=== PATIENT | female | born 1995 | race African-American/Black ===

== ENCOUNTER 2021-04-19 17:51 | Observation (INO) | payer BC, SELFPAY ==
--- NOTE | ~2021-04-19 | US_ITS ---
EXAMINATION: 1. US OB limited 2. US OB transvaginal DATE: 04/19/2021 19:36 INDICATION: Vaginal bleeding . Second trimester. TECHNIQUE: Real-time ultrasound of the pelvis was performed. COMPARISON: None. FINDINGS: There is a single fetus in vertex presentation. The placenta is on the mother's right, 1.0 cm from t he cervix. heart rate is 157 beats per minute (bpm). The amniotic fluid index is 14.0 cm, which is normal. Transvaginal images demonstrate a cervical length of 3.8 cm, which is normal. IMPRESSION: 1. Single living fetus in vertex presentation. 2. Low lying placenta. 3. Normal cervical length. Reviewed, dictated and finalized at location A. OARD MOTORBOAT RIGGER IMPRESSION: 1. Single living fetus in vertex presentation. 2. Low lying placenta. 3. Normal cervical length.
--- NOTE | 2021-04-19 18:51 | PM.IMHP ---
H&P: HPI History of Present Illness Date/Time: 04/19/21 18:51 Pt is at 21 weeks gestation, who presents to LD after having some bleeding on her pad and a small clot at home, when presents small amount of light streaking on pad, pt denies any pain, recent intercourse or injury. hx HSV no current complaints of outbreak. Records reviewed and blood type B+ Chief Complaint: bleeding Review of Systems Review of Systems: All systems reviewed & are unremarkable except as noted in HPI and below Constitutional: Constitutional: Reports as per HPI Exam Narrative: bedside us shows posterior placenta vertex presentation, +FM, +FHR Speculum exam by CNM small blood in cul de sac, pink, gentle digital examine revealed closed cervix when removed bright red blood Const: General: cooperative, healthy appearing and comfortable Assessment and Plan Additional Plan 25 year old, at 21 weeks gestation 1. vaginal bleeding blood type B+ urinalysis ultrasound with cervical length ROLAN Await results and continue to monitor
[2021-04-19 20:23] LABS: Add Urine Microscopic? YES; Appearance Urine Clear (Clear); Bilirubin Urine Negative (Negative); Blood Urine 2+ (Negative); Color Urine Colorless (Yellow); Glucose Urine UA Negative (Negative); Ketones Urine Negative (Negative); Leukocyte Esterase Ur Negative LEU/UL (Negative); Mucus Urine Rare /lpf; Nitrate Urine Negative (Negative); Protein Urine Negative (Negative); RBC Urine 0-2 /hpf (0-2); Specific Grav Ur 1.006 (1.001-1.035); Squamous Epithelial Cell Urine Rare /hpf (Few); Urobilinogen Urine Negative mg/dL (<2.0); WBC Urine 0-3 /hpf
--- NOTE | 2021-04-19 20:38 | PC.NURSE ---
1750- PT CAME IN C/O VAGINAL BLEEDING THAT STARTED AROUND 1700 TONIGHT. SHE HAD BRIGHT RED BLEEDING WITH A SMALL CLOT INITIALLY. HER PAD UPON ARRIVAL HAD SMALL STREAKS OF BROWN BLOOD AND UPON WIPING THE TISSUE WAS LIGHT PINK. NO ABD CRAMPING/CONTRACTIONS. 1829- JULY ACUÑA IN DEPARTMENT- INFORMED OF PT ADMISSION. ORDERS RECEIVED. 1835- JULY ACUÑA AT BEDSIDE- US PERFORMED-STERILE SPECULUM EXAM PERFORMED-STERILE VAG EXAM PERFORMED. ORDERS RECEIVED.
--- NOTE | 2021-04-19 20:46 | PC.NURSE ---
1912- PT TO U/S VIA WHEELCHAIR
--- NOTE | 2021-04-19 20:48 | PC.NURSE ---
2000- JULY ACUÑA INFORMED OF US RESULTS- WILL CONSULT WITH DR. BASSETT AND CALL BACK 2007- JULY ACUÑA CALLED BACK- ORDER TO D/C PT HOME WITH INSTRUCTIONS OF NO HEAVY LIFTING, PELVIC REST, AND TO CALL OFFICE IN MORNING TO MAKE F/U APPT.
--- NOTE | 2021-04-21 07:06 | PM.OBTRLD ---
OB - Triage/Final Diagnosis Visit Information Date of evaluation: 04/19/21 Reason for evaluation: other (bleeding) Comments/Additional reasons for admission: I have assessed the risk for this patient, Maria Eugenia Neal, and determined that she would benefit from observation care. Evaluation Laboratory results: Laboratory Tests 04/19/21 20:06 Urine Color Colorless Urine Appearance Clear Urine pH 7.0 Ur Specific [place] 1.006 Urine Protein Negative Urine Glucose (UA) Negative Urine Ketones Negative Ur Blood (Man) 2+ H Urine Nitrate Negative Urine Bilirubin Negative Urine Urobilinogen Negative Leukocyte Esterase Rfl Negative Urine RBC 0-2 Urine WBC 0-3 Ur Squamous Epith Cells Rare Urine Mucus Rare
== END 2021-04-19 20:34 | disposition home or self-care (01) ==
PROVIDERS: Advanced Practice Midwife; Admitting Provider Obstetrics & Gynecology; Visit Provider Obstetrics & Gynecology
DX: O46.92 Antepartum hemorrhage, unspecified, second trimester (principal); Z3A.21 21 weeks gestation of pregnancy
CPT/HCPCS: 76815; 76817; 81001; G0378; G0379

== ENCOUNTER 2021-08-23 06:02 | Inpatient (IN) | payer BC, SELFPAY ==
[2021-08-23] VITALS (283 sets, daily range): BP systolic 66–154; BP diastolic 36–138; PULSE 25–183; TEMP 36.5–38.1; O2SAT 57–100; BMI 29.2
[2021-08-23 07:18] LABS: Basophils Absolute Auto 0.1 K/mm3 (0.0-0.1); Basophils Percent Auto 0.4 % (0.2-1.2); Eosinophils Percent Auto 0.2 % (0-4.4); Hematocrit 36.7 % (37.0-47.0); Hemoglobin 12.2 g/dL (12.0-15.0); Immature Granulocyte Absolute 0.84 K/mm3 (0.00-0.031); Immature Granulocyte Percent A 4.2 % (0-0.5); Lymphocytes Absolute Auto 1.78 K/mm3 (0.9-3.2); Lymphocytes Percent Auto 8.9 % (18.3-44.2); Mean Corpuscular HGB Conc 33.2 g/dl (32-36); Mean Corpuscular Hemoglobin 28.6 pg (26-34); Mean Corpuscular Volume 85.9 fl (80-100); Mean Platelet Volume 10.3 fl (7.4-10.4); Monocytes Absolute Auto 2.1 K/mm3 (0.1-0.6); Monocytes Percent Auto 10.3 % (2.6-8.5); Neutrophils Absolute Auto 15.2 K/mm3 (1.3-6.7); Platelet Count Result 220 k/mm3 (150-375); Red Blood Count 4.27 M/mm3 (4.2-5.4); Red Cell Distribution Width 16.6 % (11.5-14.5)
[2021-08-23] MEDS: LACTATED RINGERS 1,000 ML 125 ML IV CONT ×3 (07:25→15:30)
[2021-08-23] MEDS: AMPICILLIN 2 GM/NS 100 ML 2 GM/100 ML BAG IVPB (07:28)
--- NOTE | 2021-08-23 07:33 | WPDOBADMIT ---
Obstetrics - Admit Note Admission Note: record reviewed. No pertinent additions to the history and/or any subsequent changes in the physical findings that are not consistent with the expected course of the were found. Pt admitted for labor, SVE /-2 AROM moderate amount of clear odorless fluid Additions to the history and/or subsequent changes in the physical findings follow. None.
[2021-08-23] MEDS: OXYTOCIN 30 UNITS/NS 500 ML 30 UNITS/500 ML BAG 6 UNITS IV CONT (07:42)
--- NOTE | 2021-08-23 07:58 | LDADM ---
This patient, Maria Eugenia Neal, was admitted to Labor/Delivery/Recovery 104 on 08/23/21 at 06:02. Plans for labor, pain management and were discussed with patient. Patient/family oriented to hospital policies and general routines including ID bracelet, bed and alarms, visiting hours, pain management, procedures, bathroom and other care routines, personal items, smoking policy, room service/diet and guest tray routines, security routines, and visiting hours. Patient/Family are encouraged to report perceived risks to care and to ask questions if they do not understand what they are told or what they should do. See OBIX for further documentation.
[2021-08-23] MEDS: fentaNYL CITRATE INJ (*CRX) 100 MCG/2 ML VIAL 50 MCG IV PUSH (08:14)
--- NOTE | 2021-08-23 08:50 | WPDANESEPPF ---
Anes - Initial Pre Proc Eval Procedure: labor epidural Date/Time: 08/23/21 08:50 Surgeon: Darlene Steele MD Pre Op Diagnosis: labor pain Pre Op Diagnosis: Induction of Labor Patient Data Age: 26 Gender: F Height: 1.6 m Weight: 75 kg Last Vital Signs Temp 36.6 C 08/23/21 07:11 Pulse 99 08/23/21 08:48 BP 116/49 L 08/23/21 08:48 O2 Del Method Room Air 08/23/21 07:56 Allergies Allergy/AdvReac Type Severity Reaction Status Date / Time No Known Allergies Allergy Verified 08/03/21 14:32 Home Medications Medication Instructions Recorded Confirmed Type ferrous sulfate 325 mg (65 mg 325 mg PO DAILY 08/03/21 08/03/21 History iron) tablet (Iron (ferrous sulfate)) vit no.95-ferrous 1 tablet PO DAILY 08/03/21 08/03/21 History fumarate 28 mg-folic acid 800 mcg tablet () Laboratory Tests 08/23/21 08/23/21 08/23/21 06:48 06:48 06:48 WBC 20.0 K/mm3 H K/mm3 (4.5-10.0) RBC 4.27 M/mm3 M/mm3 (4.2-5.4) Hgb 12.2 g/dL g/dL (12.0-15.0) Hct 36.7 % L % (37.0-47.0) MCV 85.9 fl fl (80-100) MCH 28.6 pg pg (26-34) MCHC 33.2 g/dl g/dl (32-36) RDW 16.6 % H % (11.5-14.5) Plt Count 220 k/mm3 k/mm3 (150-375) MPV 10.3 fl fl (7.4-10.4) Immature Gran % (Auto) 4.2 % H % (0-0.5) Neut % (Auto) 76.0 % H % (45.5-73.1) Lymph % (Auto) 8.9 % L % (18.3-44.2) [place] % (Auto) 10.3 % H % (2.6-8.5) Eos % (Auto) 0.2 % % (0-4.4) Baso % (Auto) 0.4 % % (0.2-1.2) Lymph # (Auto) 1.78 K/mm3 K/mm3 (0.9-3.2) [place] # (Auto) 2.1 K/mm3 H K/mm3 (0.1-0.6) Eos # (Auto) 0.0 K/mm3 K/mm3 (0-0.3) Baso # (Auto) 0.1 K/mm3 K/mm3 (0.0-0.1) Abs Immat Gran (auto) 0.84 K/mm3 H K/mm3 (0.00-0.031) Absolute Neuts (auto) 15.2 K/mm3 H K/mm3 (1.3-6.7) Absolute Nucleated RBC 0.0 K/mm3 K/mm3 (0.0-0.012) Nucleated RBC % 0.0 % % (0.0-0.2) RPR Pending Blood Type B Positive Antibody Screen Negative Patient hx anesthesia problems: none Family hx anesthesia problems: none Results Review: All pre-operative results and documents have been reviewed as part of the pre-operative evaluation. [facility] Family History Family History (Updated 08/03/21 @ 14:34 by Baylee Vargas RN) Father Hypertension Mother Hypertension Social History Social History Smoking status: Never smoker Substance use: never Spiritual care concerns: No Anes - Eval Final PreProcedure Day of Procedure 08/23/21 08:50 Patient weight: overweight ASA classification: III Anesthetic plan: proceed Anesthesia type and monitoring: regional epidural and standard monitoring Results Review: All pre-operative results and documents have been reviewed as part of the pre-operative evaluation. Informed Consent: The patient's anesthetic plan and its attendant risks and benefits were discussed with the patient/family/POA. Questions were solicited and answers provided to the satisfaction of the patient/family/POA.
[2021-08-23] MEDS: AMPICILLIN 1 GM/NS 50 ML 1 GM/50 ML BAG IVPB ×3 (11:24→19:42)
[2021-08-23 12:51] LABS: Rapid Plasma Reagin Non-Reactive (NonReactive)
[2021-08-23] MEDS: ACETAMINOPHEN 500 MG TABLET 1000 MG PO ×2 (14:24→21:18)
[2021-08-23] MEDS: ONDANSETRON INJ 4 MG/2 ML VIAL IV PUSH (20:12)
[2021-08-23] MEDS: miSOPROStol 200 MCG TABLET 1000 MCG RECTAL (23:49)
--- NOTE | 2021-08-23 23:53 | PM.OBPRVD ---
OB - Delivery Note Procedure Procedure: Vaginal delivery Events: Positive Group B Strep (GBS) Delivery augmentation: Rupture of Membranes and Pitocin Delivery monitor: External FHT and External Uterine Route of delivery: Laceration Description: None Specimen: Yes Quantitative Blood Loss (ml): 407 Anesthesia type: Epidural Disposition: Floor [place] Baby Date of : 08/23/21 Time of : 23:37 Weeks of gestation at delivery: 39 Infant gender: Male Weight (pounds): 7 Weight (ounces): 10 presentation: vertex position: Left Occiput Anterior Placenta delivery description: Spontaneous Cord Vessel Description: 3 Vessels, Clamped/Cut and Delayed Cord Clamping score one minute: 7 score five minutes: 9
[2021-08-24] VITALS (18 sets, daily range): BP systolic 85–134; BP diastolic 44–76; PULSE 68–120; RESP 14–18; TEMP 36.3–37.9; O2SAT 97–99
[2021-08-24] MEDS: OXYTOCIN 30 UNITS/NS 500 ML 30 UNITS/500 ML BAG 125 UNITS IV CONT (00:10)
[2021-08-24] MEDS: IBUPROFEN 600 MG TABLET PO ×2 (02:14→09:50)
[2021-08-24] MEDS: WITCH HAZEL 40 PADS 1 PAD TOPICAL (02:29)
[2021-08-24] MEDS: BENZOCAINE 20% AER SPR (*SP) 56 GM CAN 1 SPRAY TOPICAL (02:29)
[2021-08-24 05:50] LABS: Hematocrit 33.7 % (37.0-47.0); Hemoglobin 10.3 g/dL (12.0-15.0)
--- NOTE | 2021-08-24 07:27 | PM.OBPNVD ---
OB - PN: Subj Subjective Date/time seen: 08/24/21 07:27 Patient comments: no complaints, pain well controlled, incisional pain, tolerating diet and flatus present OB - PN: Obj Data Labs CBC & Chem 7: 08/24/21 05:44 Labs: Laboratory Results - last 24 hr 08/23/21 08/23/21 08/24/21 06:48 06:48 05:44 Hgb 10.3 L Hct 33.7 L RPR Non-reactive Blood Type B Positive Antibody Screen Negative OB - PN A/P Plan day: 1 Plan: routine care Comments: No problems, routine care Time Spent With Patient Time: Total time spent is greater than 50% in coordination of care (as documented) at patient's floor/unit and/or counseling patient: Exam Const: General: comfortable, no acute distress and alert Resp: Effort & Inspection: normal respiratory effort Auscultation: no crackles, no rales and no rhonchi Cardio: Rate: regular rate Heart sounds: no click, no murmurs and no rubs GI: Inspection: non-distended GI Palp: No Tenderness to palpation present (GI) Auscultation: normal bowel sounds Other: Incision - CDI Extrem: General: normal to inspection, no pedal edema and no calf tenderness
[2021-08-24] MEDS: MULTIVIT/MIN/PREN/FOL AC/IRON TABLET 1 TAB PO (09:50)
--- NOTE | 2021-08-24 11:09 | WPDANLDPN2 ---
Anes-Prog Note L&D Date/Time: 08/24/21 11:09 Neuraxial method: epidural Epidural/Spinal procedure site: clean & non-tender Neuro status: Neuro function grossly intact. Vital Signs: Last Vital Signs Temp 97.8 F 08/24/21 08:15 Pulse 70 08/24/21 08:15 Resp 16 08/24/21 08:15 BP 85/48 L 08/24/21 08:15 Pulse Ox 99 08/24/21 08:15 O2 Del Method Room Air 08/24/21 03:44 Pain score (VAS): 0 I/O: Intake & Output 08/23/21 08/24/21 08/24/21 23:59 07:59 15:59 Output Total 100 Balance -100 Patient feedback: Patient satisfied with anesthetic care.
--- NOTE | 2021-08-24 14:55 | PC.NURSE ---
1400 - Mother led the conversation with her experience and plan to feed her so far and her ability to independently latch infant optimally without discomfort. Reminded parents to use good handwashing technique to prevent infection. Mother is feeding appropriately for growth of infant and understands stimulating to eat if needed. has had appropriate feedings in the last 24 hours meets the outcomes for weight, output and jaundice at this time. Mother states she is confident to continue effectively her infant at home or when to call for assistance and denies any additional assistance or education at this time. Reinforced understanding of milk production, transition of milk, signs of adequate intake, prevention/relief of engorgement, responsive after visualizing feeding cues, the different methods of stimulating to breastfeed 2-3 hours after the start of the last feeding, community resources, medication information reviewed per [employer] and when to call a provider using the resource of the mom and baby guide/[facility] website. Mother voiced understanding of the education shared.
[2021-08-25 07:45] VITALS: BP 95/48; PULSE 65; RESP 18; TEMP 36.7; O2SAT 98
--- NOTE | 2021-08-25 08:01 | PM.OBPNVD ---
OB - PN: Subj Subjective Date/time seen: 08/25/21 08:01 Patient comments: no complaints, pain well controlled and tolerating diet OB - PN: Obj Data Labs CBC & Chem 7: 08/24/21 05:44 OB - PN A/P Plan day: 2 Plan: routine care and discharge home Time Spent With Patient Time: Total time spent is greater than 50% in coordination of care (as documented) at patient's floor/unit and/or counseling patient: Exam Const: General: comfortable and no acute distress Resp: Effort & Inspection: normal respiratory effort Auscultation: no rales, no rhonchi and no wheezes Cardio: Rate: regular rate Heart sounds: no click, no murmurs and no rubs GI: GI Palp: Yes Soft to palpation and No Tenderness to palpation present (GI) Auscultation: normal bowel sounds Extrem: General: normal to inspection, no pedal edema and no calf tenderness
--- NOTE | 2021-08-25 08:01 | PM.OBDSVD ---
DS: Admitting Diagnosis Discharge Date 08/25/21 Admitting Diagnosis term OB - DS: Summary OB Procedures : None OB Procedures Intrapartum: Spontaneous Vag Delivery OB Procedures: : None Time Spent with Patient Time attestation: Total time spent providing and/or coordinating discharge services: DS: Data Data Completed and Pending Pending studies at discharge: Pending at discharge 08/23/21 23:45 Surgical [PTH] Routine Discharge Plan Discharge Discharging Clinician: Darlene Steele Patient Disposition: Home, Self-Care Activity: pelvic rest Diet: regular Patient Instructions: Antibiotic Form Stand Alone Forms: General Discharge Information Follow-up/Referrals: Darlene Steele MD [Physician] - Discharge Medications: Continued ferrous sulfate [Iron (ferrous sulfate)] 325 mg (65 mg iron) Tablet 325 mg PO DAILY PNV cmb#95-ferrous fumarate-FA [] 28 mg iron- 800 mcg Tablet 1 tablet PO DAILY Discontinued valacyclovir 1 gram tablet 1 tablet PO DAILY Date of admission: 08/23/21 06:02 Primary Care Provider: PHYSICIAN,MOTTLER OPERATOR Admitting Provider: Darlene Steele Attending physician on admission: Darlene Steele Condition: Stable
[2021-08-25] MEDS: MULTIVIT/MIN/PREN/FOL AC/IRON TABLET 1 TAB PO (08:39)
[2021-08-25] MEDS: DOCUSATE SODIUM 100 MG CAPSULE PO (08:39)
--- NOTE | 2021-08-25 13:19 | PC.NURSE ---
1705 - [id number] Introductions were made, then consulted with patient to assess needs related to . Mother led the conversation with her experience feeding her infant so far. Mother works well with her . Encouraged understanding of the benefits of skin to skin (unwrapping and placing vertically on her chest), responsive feeding and how to watch for early feeding signs, frequency of feeding on demand about every 8-12 times in 24 hours (every 2-3 hours), milk production, duration of feeding, signs of adequate intake/output and how to record on the feeding sheet. Reviewed positioning and ear, shoulder, hip alignment, supporting the breast, asymmetrical latch (off-center), and leading with the chin with a big open side gape. placed skin to skin and mother voiced understanding to call for a latch assessment. RN reported to primary RN to assess latch. 1133 - Primary RN reported infant was encouraged, it took some time but latched well. Primary RN requests RN to assess latch. [id number] After numerous attempts over the span of yesterday and today to assess latch RN was unable to assess latch to the right breast. Mother hand expresses milk from her breast and parents voiced confidence that opens wide and latches great when he is hungry . Education on positioning and latch was reviewed multiple times with the addition of handouts and mom/baby guide. Mother demonstrates working well with infant. Father of is actively supportive. Mother verbalizes she is able to independently latch infant with appropriate positioning/alignment. She denies any nipple discomfort and is responsively . Infant is currently meeting outcomes for weight, output, jaundice and feeding frequencies of 8-12 times in 24 hours. Mother declines any additional assistance/education at this time. Mother is encouraged to call for assistance if her infant doesn?t latch or there is discomfort with latching. Follow up appt is scheduled for tomorrow. Mother voiced understanding of information shared and mom and baby guide reviewed for additional resource information. Reported to the primary RN.
--- NOTE | 2021-08-25 13:27 | PC.NURSE ---
Addendum entered by Stephania Martinez RN 08/25/21 13:29: Assessment was at [id number] Original Note: 1225 Mother led the conversation with her experience and plan to feed her so far and her ability to independently latch infant optimally without discomfort. Nipples remain uninjured and mother states they are a bit sore but not painful and there is no pain with latching. Reminded parents to use good handwashing technique to prevent infection. Mother is feeding appropriately for growth of and understands stimulating to eat if needed. Infant has had appropriate feedings in the last 24 hours meets the outcomes for weight, output and jaundice at this time. Mother states she is confident to continue effectively her infant at home or when to call for assistance and denies any additional assistance or education at this time. Reinforced understanding of milk production, transition of milk, signs of adequate intake, prevention/relief of engorgement, responsive after visualizing feeding cues, the different methods of stimulating to breastfeed 2-3 hours after the start of the last feeding, community resources, medication information reviewed per [employer] and when to call a provider using the resource of the mom and baby guide/[facility] website. Mother voiced understanding of the education shared. Reported to the primary RN.
[2021-08-26 07:48] VITALS: BP 104/57; PULSE 57; RESP 16; TEMP 36.9; O2SAT 100
== END 2021-08-25 14:25 | disposition home or self-care (01) | DRG 807 ==
LOC: ANHLDR 06:07 → ANHOB2 08-24 02:44
PROVIDERS: Advanced Practice Midwife; Admitting Provider Obstetrics & Gynecology; Visit Provider Obstetrics & Gynecology
DX: O99.824 Streptococcus B carrier state complicating childbirth (principal); Z37.0 Single live birth; O76 Abnormality in fetal heart rate and rhythm complicating labor and delivery; Z3A.39 39 weeks gestation of pregnancy
CPT/HCPCS: 36415; 85014; 85018; 85025; 86592; 86850; 86900; 86901; 88307; A9270; J0290; J2405; J2590; J2795; J3010; J7120